=== PATIENT | male | born 1985 | race Caucasian/White ===

== ENCOUNTER 2016-07-12 20:38 | Emergency (ER) | payer SELFPAY ==
[~2016-07-12] VITALS: Ht 182.8 cm; Wt 79.4 kg
--- NOTE | ~2016-07-12 | EKG ---
[place], [place] ELECTROCARDIOGRAM REPORT NAME: HARPER CHANCE UNIT #: [id number] ROOM: DOCTOR: LYNDSAY ALLEN MD BIRTHDATE: [birth year] DOS: 07/12/2016 TIME: 2132 hours. Sinus arrhythmia with rate of 60 beats per minute. Moderate right axis deviation. No previous tracing is available for comparison. LYNDSAY ALLEN MD CM:EKGRPT:ELECTROCARDIOGRAM REPORT [id number] [phone] LYNDSAY ALLEN MD
[~2016-07-12 20:38] MED LIST: CIPRO250 MG PO; CIPROFLOXACIN500 MG PO; DICLOFENAC POTA50 MG PO; FLEXERIL5 MG PO; HYDROCODONE BIT1 T11 PO; LEVOFLOXACIN500 MG PO; NAPROSYN500 MG PO; NKHM; NORCO 325 MG-51 TAB PO; PARAFON FORTE500 MG PO; PREDNICOT20 MG PO; TOBREX OPHTH S2.5 ML OPH; TYLENOL W/CODEI1 TA2 PO; ULTRAM50 MG PO; ZYRTEC10 MG PO
[2016-07-12] MEDS ORDERED: ADVIL MIGRAINE200 MG PO (20:51)
[2016-07-12] MEDS ORDERED: ANAPROX DS550 MG PO (22:28)
[2016-07-12] MEDS ORDERED: ULTRAM50 MG PO (22:28)
== END 2016-07-12 22:30 | disposition home or self-care (01) ==
LOC: ED 20:38
DX: S29.012A Strain of muscle and tendon of back wall of thorax, initial encounter (principal); B33.0 Epidemic myalgia; F14.10 Cocaine abuse, uncomplicated; F12.10 Cannabis abuse, uncomplicated; F17.200 Nicotine dependence, unspecified, uncomplicated; Z88.0 Allergy status to penicillin; Z79.899 Other long term (current) drug therapy; X58.XXXA Exposure to other specified factors, initial encounter; Y93.9 Activity, unspecified; Y92.9 Unspecified place or not applicable; Y99.9 Unspecified external cause status

== ENCOUNTER 2016-07-16 12:50 | Emergency (ER) | payer SELFPAY ==
[~2016-07-16] VITALS: Ht 182.8 cm; Wt 79.4 kg
--- NOTE | ~2016-07-16 | EKG ---
[place], [place] ELECTROCARDIOGRAM REPORT NAME: HARPER CHANCE UNIT #: [id number] ROOM: DOCTOR: LYNDSAY ALLEN MD BIRTHDATE: [birth year] DOS: 07/16/2016 TIME: 1303 hours. Sinus tachycardia at 110 beats per minute. Minimal ST-segment depression in inferior leads. No previous tracing is available for comparison. LYNDSAY ALLEN MD CM:EKGRPT:ELECTROCARDIOGRAM REPORT [id number] LYNDSAY ALLEN MD
[~2016-07-16 12:50] MED LIST changes: +ADVIL MIGRAINE200 MG PO; +ANAPROX DS550 MG PO
== END 2016-07-16 14:18 | disposition left against medical advice (07) ==
LOC: ED 12:50
DX: R07.9 Chest pain, unspecified (principal); R00.2 Palpitations; F17.200 Nicotine dependence, unspecified, uncomplicated; F14.10 Cocaine abuse, uncomplicated; F12.10 Cannabis abuse, uncomplicated; Z98.890 Other specified postprocedural states; Z88.0 Allergy status to penicillin

== ENCOUNTER 2021-12-02 14:40 | Emergency (ER) | payer OTHER ==
[~2021-12-02] VITALS: Wt 77.1 kg
[2021-12-02 15:29] LABS: BASO # 0.1 10*3/uL (0.0-0.1); BASO % 0.5 % (0.0-1.0); EOS # 0.2 10*3/uL (0.0-0.4); EOS % 1.9 % (1.0-4.0); HEMATOCRIT 43.3 % (42.0-52.0); LYMPH # 2.4 10*3/uL (1.3-4.4); LYMPH % 24.8 % (27.0-41.0); MEAN CELL VOLUME 90.4 fl (80.0-94.0); MEAN CORPUSCULAR HGB 31.3 pg (27.0-31.0); MEAN CORPUSCULAR HGB CONC 34.6 g/dl (33.0-37.0); MEAN PLATELET VOLUME 11.9 fl (9.6-12.3); MONO # 0.9 10*3/uL (0.1-1.0); MONO % 9.2 % (3.0-9.0); NEUT # 6.1 10*3/uL (2.3-7.9); NEUT % 63.3 % (47.0-73.0); PLATELET COUNT AUTOMATED 213 10*3/uL (130-400); RED BLOOD COUNT 4.79 10*6/uL (4.50-5.90); RED CELL DISTRI WIDTH 12.6 % (0-14.5); WHITE BLOOD COUNT 9.6 10*3/uL (4.8-10.8)
[2021-12-02 15:50] LABS: BUN 16 mg/dl (7-24); CHLORIDE 107 mmol/L (98-107); CREATININE 0.99 mg/dL (0.70-1.30); POTASSIUM 4.9 mmol/L (3.5-5.1); SGOT/AST 15 IU/L (3-35); SGPT/ALT 17 U/L (12-78); SODIUM 142 mmol/L (136-145); TOTAL PROTEIN 7.3 gm/dL (6.4-8.2)
[2021-12-02 15:52] LABS: ALKALINE PHOSPHATASE 49 U/L (45-117); CPK 113 U/L (39-308); ETHYL ALCOHOL < 3.0 mg/dl (<3)
[2021-12-02 16:56] LABS: BILIRUBIN Negative (Negative); BLOOD Negative (Negative); CLARITY Clear (Clear); COLOR Yellow (Yellow); GLUCOSE Negative (Negative); KETONE Trace (Negative); LEUKO ESTERASE Negative (Negative); NITRITE Negative (Negative); PH 6.5 (4.5-8.0); SPECIFIC GRAVITY 1.025 (1.001-1.030)
[2021-12-02 17:05] LABS: URINE AMPHETAMINES < 1000 (1000ng/ml); URINE BARBITURATES < 200 (200ng/ml); URINE BENZODIAZEPINES < 200 (200ng/ml); URINE CANNABINOIDS (THC) < 50 (50ng/ml); URINE COCAINE < 300 (300ng/ml); URINE METHADONE < 300 (300ng/ml); URINE OPIATES < 300 (300ng/ml)
[2021-12-02 17:09] LABS: BACTERIA TRACE; EPITHELIAL CELLS 0-2; RBC 0-2 rbc/hpf (0-2)
[2021-12-02 17:10] LABS: URINE PHENCYCLIDINE < 25 (25ng/ml)
== END 2021-12-02 17:39 ==
LOC: ED 14:40
PROVIDERS: Emergency Medicine
DX: F43.20 Adjustment disorder, unspecified (principal); Z20.822 Contact with and (suspected) exposure to COVID-19